=== PATIENT | female | born 1950 | race Caucasian/White ===

== ENCOUNTER → 2017-06-10 | Outpatient (CLI) | payer MEDICARE, MEDICAID ==
[~2017-06-10] MED LIST: AMITRIPTYLINE 225 MG PO; AMITRIPTYLINE H10 M1 PO; BETIMOL 5 ML5 M1 OP; BUTALBITAL, ACE1 CA1 PO; CELEXA20 MG PO; CITALOPRAM HYDR40 MG PO; CRESTOR20 MG PO; CYCLOBENZAPRINE10 MG PO; FUROSEMIDE 20MG20 MG PO; GABAPENTIN300 M1 PO; LEVOTHYROXINE0.05 M2 PO; MECLIZINE HYDRO25 M2 PO; MELOXICAM15 MG PO; MINOCYCLINE 10100 MG PO; NEURONTIN 300M300 MG PO; NORCO1 TAB PO; OMEPRAZOLE20 MG PO; OMEPRAZOLE40 MG PO; PRAVACHOL40 MG PO; PROPRANOLOL HCL20 MG PO
[2017-06-10 18:54] LABS: AMPHETAMINES/METAMPHETAMINES NEGATIVE ng/mL (<1000)
== END ==
LOC: LAB 16:15
PROVIDERS: Nurse Practitioner Family
DX: Z79.899 Other long term (current) drug therapy (principal)

== ENCOUNTER → 2017-06-20 | Outpatient (CLI) | payer MEDICARE, MEDICAID ==
--- NOTE | 2017-06-24 19:34 | RADIOLOGY REPORT PS360 ---
DIG MAMM-SCREEN JENNI W/CAD CAD Screening COMPARISON: Digital mammograms 04/12/2016 and follow-up additional views right breast 05/07/2016 INDICATION: There is a history of breast cancer patient's sister diagnosed after menopause and in the patient's maternal grandmother TECHNIQUE: Standard CC and MLO images were obtained. R2 CAD reviewed. FINDINGS: Moderate fibroglandular densities are seen in the central portions of both breast. The 2 small nodular density right breast seen on the patient's original mammograms 04/12/2016 are stable and unchanged and were shown to be cystic on previous ultrasound. There are stable benign-appearing calcifications right breast and there is a mole marker right breast. There is no suspicious lesion and no suspicious microcalcifications. IMPRESSION: Moderate breast density with no suspicious lesion seen recommend yearly follow-up BI-RADS CATEGORY: 2_Benign RECOMMENDED FOLLOWUP: 12M 12 MONTH FOLLOW-UP (A letter has been sent to the patient regarding results of the study.)
== END ==
LOC: RAD 05-23 08:30
DX: Z12.31 Encounter for screening mammogram for malignant neoplasm of breast (principal)
CPT/HCPCS: G0202

== ENCOUNTER → 2017-08-19 | Outpatient (CLI) | payer MEDICARE, MEDICAID ==
[2017-08-19 17:45] LABS: AMPHETAMINES/METAMPHETAMINES NEGATIVE ng/mL (<1000)
== END ==
LOC: LAB 16:53
PROVIDERS: Emergency Medicine
DX: Z79.899 Other long term (current) drug therapy (principal)